=== PATIENT | male | born 1970 | race Caucasian/White ===

== ENCOUNTER 2019-08-08 04:21 | Inpatient (IN) | payer BC ==
[~2019-08-08] VITALS: Ht 172.7 cm; Wt 66.0 kg
[2019-08-08] MEDS ORDERED: ONDANSETRON HCL INJ 2MG/ML 2ML 2 MG/ML VIAL IV STA (04:38)
[2019-08-08] MEDS ORDERED: MORPHINE SULFATE 2 MG/ML SYR 1ML IV STA ×3 (04:38→06:31)
[2019-08-08] MEDS ORDERED: KETOROLAC TROMETHAMINE 30 MG/ML VIAL IV STA (04:41)
[2019-08-08] MEDS ORDERED: ONDANSETRON HCL INJ 2MG/ML 2ML 2 MG/ML VIAL ONE (04:42)
[2019-08-08] MEDS ORDERED: KETOROLAC TROMETHAMINE 30 MG/ML VIAL ONE (04:42)
[2019-08-08] MEDS ORDERED: SODIUM CHLORIDE 0.9% 1000ML 1,000 ML ONE ×2 (04:42→06:26)
[2019-08-08] MEDS ORDERED: MORPHINE SULFATE INJ 4 MG/ML INJ 1ML ONE ×2 (04:45→05:18)
[2019-08-08] MEDS ORDERED: SODIUM CHLORIDE 0.9% 1000ML 1,000 ML IV ONE (05:00)
[2019-08-08] MEDS ORDERED: SODIUM CHLORIDE FLUSH 10 ML SYR IV ONE (05:00)
[2019-08-08] MEDS ORDERED: FAMOTIDINE 20 MG/2 ML VIAL IV STA (06:19)
--- NOTE | 2019-08-08 06:31 | NUR ---
PER MD GIVE 2ND 2MG OF MORPHINE SIVP PT STILL PAIN 08/24.
--- NOTE | 2019-08-08 06:35 | Diagnostic Imaging Report ---
EXAM: CT Abdomen and Pelvis WITHOUT contrast INDICATION: Mid abdominal pain, nausea, vomiting COMPARISON: None. TECHNIQUE: Abdomen and pelvis were scanned utilizing a multidetector helical scanner from the lung base to the pubic symphysis without administration of IV contrast. Absence of intravenous contrast decreases sensitivity for detection of focal lesions and vascular pathology. Coronal and sagittal reformations were obtained. Routine protocol was performed. IV CONTRAST: None ORAL CONTRAST: None COMPLICATIONS: None RADIATION DOSE: Total DLP: 653 mGy*cm Estimated effective dose: (DLP x 0.015 x size factor) mSv CTDIvol has been reviewed. It is below the limits set by the Radiation Protocol Committee (RPC). Dose modulation, iterative reconstruction, and/or weight based adjustment of the mA/kV was utilized to reduce the radiation dose to as low as reasonably achievable. FINDINGS: LINES and TUBES: None. LOWER THORAX: Tree-in-bud opacities in the bilateral mid to lower lungs. HEPATOBILIARY: No focal hepatic lesions. No intrahepatic biliary ductal dilation. Mild common bile duct dilation likely due to risk for effect is seen status post cholecystectomy. GALLBLADDER: There are cholecystectomy clips. SPLEEN: No splenomegaly. PANCREAS: Peripancreatic fat stranding. No focal masses or ductal dilatation. ADRENALS: No adrenal nodules KIDNEYS/URETERS: No hydronephrosis. No cystic or solid mass lesions. No stones. GI TRACT: No abnormal distention, wall thickening, or evidence of bowel obstruction. Appendix is normal. PELVIC ORGANS/BLADDER: Moderate prostatomegaly. Surgical changes of vasectomy. LYMPH NODES: No lymphadenopathy. VESSELS: Unremarkable. PERITONEUM / RETROPERITONEUM: No free air or fluid. BONES: Unremarkable. SOFT TISSUES: Unremarkable. IMPRESSION: 1. Findings likely represent acute interstitial edematous pancreatitis, correlate with lipase. 2. Tree-in-bud opacities in the bilateral mid to lower lungs concerning for airway spread of infection/multifocal pneumonia. Signed by: Christiano Prather DO on 08/08/2019 6:32 AM
--- NOTE | 2019-08-08 06:37 | NUR ---
CALLED AND SPOKE WITH CALISTA SANCHEZ. WILL REC. ADMIT BED AFTER CHANGE OF SHIFT. BEDS ARE AVAILABLE.
[2019-08-08] MEDS ORDERED: SODIUM CHLORIDE 0.9% 1000ML 1,000 ML IV STA (06:40)
[2019-08-08] MEDS ORDERED: MORPHINE SULFATE 2 MG/ML SYR 1ML IV PRN (06:45)
--- OUTSIDE RECORDS SUMMARY | 2019-08-08 07:05 | XMS REPORT ---
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 Allergies, Adverse Reactions, Alerts This patient has no known allergies or adverse reactions. Medications This patient has no known medications. Results Test Description Test Time Test Comments Text Results Atomic Results Result Comments CT ABD/PEL WO CONTRAST-HOPD 2019-08-08 06:24:00 [place] [address] Patient Name: MILAGROS AMBROSIO MR #: [id number] : 1970 Age/Sex: 48/M Req #: [id number] Adm Physician: Ordered by: CARLI ALEX MD Report #: [id number] Location: [facility] Room/Bed: Procedure: [id number] HOPD/CT ABD/PEL WO CONTRAST-HOPD Exam Date: 08/08/19 Exam Time: 524 REPORT STATUS: Signed EXAM: CT Abdomen and Pelvis WITHOUT contrast INDICATION: Mid abdominal pain, nausea, vomiting COMPARISON: None. TECHNIQUE: Abdomen and pelvis were scanned utilizing a multidetector helical scanner from the lung base to the pubic symphysis without administration of IV contrast. Absence of intravenous contrast decreases sensitivity for detection of focal lesions and vascular pathology. Coronal and sagittal reformations were obtained. Routine protocol was performed. IV CONTRAST: None ORAL CONTRAST: None COMPLICATIONS: None RADIATION DOSE: Total DLP: 653 mGy*cm Estimated effective dose: (DLP x 0.015 x size factor) mSv CTDIvol has been reviewed. It is below the limits set by the Radiation Protocol Committee (RPC). Dose modulation, iterative reconstruction, and/or weight based adjustment of the mA/kV was utilized to reduce the radiation dose to as low as reasonably achievable. FINDINGS: LINES and TUBES: None. LOWER THORAX: Tree-in-bud opacities in the bilateral mid to lower lungs. HEPATOBILIARY: No focal hepatic lesions. No intrahepatic biliary ductal dilation. Mild common bile duct dilation likely due to risk for effect is seen status post cholecystectomy. GALLBLADDER: There are cholecystectomy clips. SPLEEN: No splenomegaly. PANCREAS: Peripancreatic fat stranding. No focal masses or ductal dilatation. ADRENALS: No adrenal nodules KIDNEYS/URETERS: No hydronephrosis. No cystic or solid mass lesions. No stones. GI TRACT: No abnormal distention, wall thickening, or evidence of bowel obstruction. Appendix is normal. PELVIC ORGANS/BLADDER: Moderate prostatomegaly. Surgical changes of vasectomy. LYMPH NODES: No lymphadenopathy. VESSELS: Unremarkable. PERITONEUM / RETROPERITONEUM: No free air or fluid. BONES: Unremarkable. SOFT TISSUES: Unremarkable. IMPRESSION: 1. Findings likely represent acute interstitial edematous pancreatitis, correlate with lipase. 2. Tree-in-bud opacities in the bilateral mid to lower lungs concerning for airway spread of infection/multifocal pneumonia. Signed by: Christiano Prather DO on 08/08/2019 6:32 AM Dictated By: CHRISTIANO PRATHER DO 1 Transcribed By: NISHI on 08/08/19631 COPY TO: CARLI ALEX MD
--- NOTE | 2019-08-08 07:10 | NUR ---
PT TO BE TRANSFERRED TO [facility] MAIN, PT AND FAMILY AWARE OF POC, VITAL SIGNS STABLE, PT VOICES NO COMPLAINTS AT THIS TIME
--- NOTE | 2019-08-08 07:14 | NUR ---
[facility] CALLED FOR TRANSFER 45MIN ETA
--- NOTE | 2019-08-08 08:25 | NUR ---
RECEIVED TO RM AAOX3 NO DISTRESS NOTED, UPDATED ON POC VOICED UNDERSTANDING, PT CO PAIN 11/23 PT WAS MEDICATED PRIOR IN [facility] ER, WILL NOTIFY DR BEE FOR FURTHER ORDERS, IVF INFUSING TO R FA 20G NO SS OF INFILTRATION NOTED, ORIENTED TO RM, NO OTHER CO VOICED CALL LIGHT IN REACH WILL CONTINUE TO MONITOR
--- NOTE | 2019-08-08 08:40 | NUR ---
LAB IN ROOM DRAWING BLOOD CULTURES
[2019-08-08] MEDS: LEVOFLOXACIN 750MG/D5W 150ML 150 ML IV SCH (08:50)
[2019-08-08] MEDS: FAMOTIDINE 20 MG/2 ML VIAL IV SCH ×2 (09:00→17:16)
[2019-08-08] MEDS: HYDROMORPHONE 1MG/1ML INJ IV PRN ×5 (09:30→23:26)
[2019-08-08] MEDS: ONDANSETRON HCL INJ 2MG/ML 2ML 2 MG/ML VIAL IV PRN ×2 (09:30→19:53)
[2019-08-08 09:48] VITALS: BP 114/77
[2019-08-08] MEDS ORDERED: DICYCLOMINE HCL10 MG PO (10:06)
[2019-08-08] MEDS ORDERED: ZEBETA10 MG PO (10:06)
[2019-08-08 10:09] VITALS: BP 114/77
[2019-08-08] MEDS ORDERED: PROMETHAZINE 12.5MG/ NACL 0.9% 12.5 MG/50 ML BAG IV PRN (13:15)
[2019-08-08] MEDS: SODIUM CHLORIDE 0.9% 1000ML 1,000 ML IV SCH ×3 (14:05→20:45)
[2019-08-08 14:21] VITALS: BP 142/75
[2019-08-08 17:21] VITALS: BP 125/74
--- NOTE | 2019-08-08 18:54 | NUR ---
WALKING ROUNDS PERFORMED, RECEIVED PT LAYING SEMI FOWLERS IN BED, AAOX3, RR EVEN AND NON-LABORED, ON ROOM AIR. PT REPORTS ANTERIOR ABD PAIN. LEFT PT LAYING SEMI FOWLERS IN BED, BED IN LOW LOCKED POSITION, SIDE RAILS UPX2, CALL LIGHT AND PHONE WITHIN REACH.
[2019-08-08] MEDS ORDERED: LORAZEPAM INJ 2 MG/ML VIAL IV PRN (19:30)
[2019-08-08 20:00] VITALS: BP 118/72
[2019-08-08] MEDS ORDERED: MULTIVITAMINS- 12 INJECTION 10 ML, FOLIC ACID MDV 5 MG, THIAMINE HCL INJ 100 MG in SODI... IV ONE (20:00)
--- NOTE | 2019-08-08 21:01 | Consultation ---
DATE OF CONSULTATION: 08/08/2019 CONSULTING PHYSICIAN: Dominic Stewart MD. REASON FOR CONSULT: Acute alcoholic pancreatitis. 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 He consumed lots of alcohol yesterday's night. He stated that he had tattoos placed in the right forearm, because of the pain he was experiencing secondary to tattoo placement, he decided to drink more alcohol. When he arrived to the local [facility]-standing emergency room, his amylase level was elevated to 220. Noncontrast CT scan showed radiographic evidence of pancreatitis. The patient was subsequently transferred to Inpatient Service here. Currently, his pain is being controlled with intravenous Dilaudid. He is also getting intravenous normal saline. The patient has never had any attack of pancreatitis in his life in the past. He is status post cholecystectomy. Liver enzymes drawn suggestive of alcoholic liver disease. REVIEW OF SYSTEMS: Twelve-point system reviewed, pertinent positives as per HPI. PAST MEDICAL HISTORY: Hypertension. PAST SURGICAL HISTORY: Cholecystectomy. FAMILY HISTORY: Noncontributory. SOCIAL HISTORY: , lives with his . Regular use of alcohol. No smoking or any illicit drug use. ALLERGIES: NO KNOWN DRUG ALLERGIES. MEDICATION: Home medication, bisoprolol. Inpatient medication, reviewed as per MAR, he is gettin. Levofloxacin 750 mg IV daily. 2. Normal saline at 150 mL an hour. 3. Famotidine 20 mg IV twice daily. 4. Hydromorphone 1 mg IV every 3 hours as needed. PHYSICAL EXAMINATION: VITAL SIGNS: Temperature 96.6, pulse 77, respirations 20, blood pressure 125/74, oxygen saturation 95% on room air. GENERAL: Not in any apparent distress. HEENT: Oral mucosa is moist. Anicteric sclerae. CVS: S1, S2 regular. LUNGS: Bilaterally grossly clear without any rales or rhonchi. ABDOMEN: Soft. Palpable epigastric tenderness on mild palpation without rebound, rigidity, or guarding. Positive bowel sounds. EXTREMITIES: Warm. Trace leg edema. LABORATORY DATA: Sodium 140, potassium 4.5, chloride 102, bicarb 26, BUN 8, creatinine 0.7. Liver enzymes showed alkaline phosphatase 98, ALT 94, AST 128, total bilirubin 0.8, albumin 4.0, total protein 7.0. Urine drug screen is negative. WBC 10.7, hemoglobin 16.4, hematocrit 47.6, MCV 92, and platelet count 203. CT of the abdomen and pelvis without contrast showed: 1. Findings likely representing acute interstitial edematous pancreatitis, correlate with lipase. 2. Tree-in-bud opacities in bilateral [id number]-[id number] lungs concerning for airway spread of infection/multifocal pneumonia. IMPRESSION: 1. Acute alcoholic pancreatitis without any local or distant complication. 2. Tree-in-bud opacities seen in both the lungs concerning for resolving pneumonia. The patient's stated that he has had flu-like symptoms couple of weeks ago. 3. Alcohol dependence. PLAN: N.p.o., aggressive isotonic IV fluid resuscitation, agree with normal saline at least 150-200 mL an hour, supportive care, hydromorphone as needed. Since the patient has significant alcohol dependence, therefore recommend to be vigilant about alcohol withdrawal signs. Supplement thiamine and folate. We will consider banana bag. I recommend a admin asst consult for CT lung findings. I thank Dr. Stewart for allowing me to participate in the care of this patient. Fazal Pierce MD SA/KHLOE /[id number]
[2019-08-08 21:18] VITALS: BP 118/72
[2019-08-09] VITALS (9 sets, daily range): BP systolic 122–143; BP diastolic 66–84
[2019-08-09] MEDS: HYDROMORPHONE 1MG/1ML INJ IV PRN ×5 (03:04→21:41)
[2019-08-09] MEDS ORDERED: FOLIC ACID 5 MG/ML VIAL IV ONE (04:43)
[2019-08-09] MEDS ORDERED: THIAMINE HCL INJ 100 MG/ML 2ML VIAL IV ONE (04:43)
[2019-08-09] MEDS ORDERED: MULTIVITAMINS- 12 INJECTION 10 ML in SODIUM CHLORIDE 0.9% 1000ML 1,000 ML IV ONE (04:44)
[2019-08-09 05:29] LABS: BASOPHILS % 0.5 % (0.0-1.0); EOSINOPHILS # (AUTO) 0.1 (0.0-0.4); EOSINOPHILS % 1.2 % (0.0-6.0); HEMATOCRIT 42.8 % (38.2-49.6); HEMOGLOBIN 14.4 g/dL (14.0-18.0); LYMPHOCYTES # (AUTO) 0.9 (1.0-3.2); LYMPHOCYTES % 10.2 % (18.0-39.1); MEAN CORPUSCULAR HEMOGLOBIN 30.3 pg (28-32); MEAN CORPUSCULAR HGB CONC 33.6 g/dL (31-35); MEAN CORPUSCULAR VOLUME 89.9 fL (81-99); MONOCYTES # (AUTO) 0.5 (0.2-0.8); MONOCYTES % 6.4 % (4.4-11.3); NEUTROPHILS # (AUTO) 6.9 (2.1-6.9); NEUTROPHILS % 81.3 % (38.7-80.0); PLATELET COUNT 126 x10e3/uL (140-360); RED BLOOD COUNT 4.76 x10e6/uL (4.3-5.7)
[2019-08-09] MEDS: LEVOFLOXACIN 750MG/D5W 150ML 150 ML IV SCH (05:33)
[2019-08-09 06:07] LABS: ALANINE AMINOTRANSFERASE 67 IU/L (0-55); ALBUMIN 3.6 g/dL (3.5-5.0); ALBUMIN/GLOBULIN RATIO 1.5 (0.8-2.0); ALKALINE PHOSPHATASE 88 IU/L (40-150); ANION GAP 8.7 mmol/L (8-16); BILIRUBIN,DIRECT 1.2 mg/dL (0.0-0.5); BLOOD UREA NITROGEN 10 mg/dL (7-26); BUN/CREATININE RATIO 14 (6-25); CALCIUM 8.3 mg/dL (8.4-10.2); CARBON DIOXIDE 32 mmol/L (22-29); CHLORIDE 99 mmol/L (98-107); CREATININE, SERUM 0.72 mg/dL (0.72-1.25); EST GLOMERULAR FILTRATION RATE > 60 ML/MIN (60-); GLUCOSE 96 mg/dL (74-118); POTASSIUM 3.7 mmol/L (3.5-5.1); SODIUM 136 mmol/L (136-145)
[2019-08-09 06:31] LABS: AMYLASE 244 U/L (25-125); LIPASE 379 U/L (8-78)
--- NOTE | 2019-08-09 06:32 | NUR ---
PAGE PLACED FOR ODALIS FOR CONSULTATION. WAITING FOR CALLBACK.
[2019-08-09] MEDS: MULTIVITAMINS- 12 INJECTION 10 ML, FOLIC ACID MDV 5 MG, THIAMINE HCL INJ 100 MG in SODI... IV SCH ×3 (07:09→23:12)
[2019-08-09] MEDS: FAMOTIDINE 20 MG/2 ML VIAL IV SCH ×2 (09:38→17:33)
--- NOTE | 2019-08-09 09:54 | Consultation ---
DATE OF CONSULTATION: Pulmonary Consultation Patient of Dr. Dominic Stewart and Dr. Pierce. 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 He was admitted with abdominal pain and vomiting, which awakened him from sleep. He does not recall aspirating. He has no known allergies. He has a history of renal stones in the past and history of hypertension, on bisoprolol. He is exposed to cedar pollen recently. He has had gallbladder surgery as well as laser surgery to remove renal stone complicated by bleeding. FAMILY HISTORY: Positive for diabetes. PHYSICAL EXAMINATION: GENERAL: He is a well-developed white male, multiple tattoos. VITAL SIGNS: Temperature 99.7, pulse 80, respirations 22, and blood pressure 122/60. HEAD: Normocephalic and atraumatic. EYES: Extraocular movements intact. LUNGS: Clear. HEART: Regular rhythm. ABDOMEN: Tender. EXTREMITIES: Nonedematous. DIAGNOSTIC DATA: CT scan reveals evidence of bilateral infiltrates consistent with pneumonia. No pleural effusions noted. He has an edematous pancreas. PLAN: Continue supportive care. Anaerobic coverage if the patient becomes febrile. He is currently on Levaquin. Amylase is 244, lipase 379, proteins are low. Liver functions are moderately elevated. Platelets are somewhat low at 126 and we will defer subcutaneous heparin. Thank you for this kind referral. David Ingram MD DS/MODL /[id number]
--- NOTE | 2019-08-09 10:15 | NUR ---
PROVIDED RESOURCES FOR LOCAL AA MEETING AND TREATMENT PROGRAMS TO FOLLOW UP UPON DISCHARGE.
--- NOTE | 2019-08-09 10:33 | Diagnostic Imaging Report ---
Chest, 2 views, 08/09/2019. History: Epigastric pain. Comparison: CT abdomen 08/08/2019. Findings: The cardiomediastinal silhouette and pulmonary vasculature are within normal limits. Diffuse bilateral reticulonodular opacities are present with minimal blunting of the right costophrenic sulcus. Patchy consolidation is present in the lateral segment of the right middle lobe and lingula. There are no acute osseous or soft tissue abnormalities. Impression: Findings consistent with multifocal pneumonia as noted on prior CT, atypical/viral infection cannot be excluded. Signed by: Denys Jorge on 08/09/2019 10:29 AM
--- NOTE | 2019-08-09 12:10 | NUR ---
Pt unavailable at this time. I will follow up as able. DEWEY Arguetal[facility] Spiritual Care Department O: [phone]
[2019-08-09] MEDS ORDERED: BISACODYL 10 MG SUPP PR NR (17:00)
--- NOTE | 2019-08-09 19:27 | NUR ---
SBAR REPORT RECEIVED FROM OPHELIA CHIANG, PATIENT AWAKE ALERT, NO DISTRESS NOTED SKIN WARM DRY, NO C/O PAIN, NO C/O ETOH WITHDRAWAL NOTED, LYING COMFORTABLY IN BED, CALL LIGHT WITHIN REACH WILL CONTINUE TO MONITOR
[2019-08-09] MEDS: ONDANSETRON HCL INJ 2MG/ML 2ML 2 MG/ML VIAL IV PRN (21:41)
[2019-08-10] VITALS (11 sets, daily range): BP systolic 112–163; BP diastolic 64–86
[2019-08-10] MEDS ORDERED: ACETAMINOPHEN 1000 MG/100 ML IV STA (00:23)
[2019-08-10] MEDS: HYDROMORPHONE 1MG/1ML INJ IV PRN ×5 (00:49→20:03)
--- NOTE | 2019-08-10 00:50 | NUR ---
ROUTINE VITAL CHECK PATIENT HAS TEMP 100.3, MD BEE NOTIFIED, PRN ACETAMINOPEN IV q6h PRN ORDERED FOR TEMP<100.9, PRN IV MEDICATION GIVEN, TOLERATED WELL, VITAL RECHECK IN 30 MINUTES
--- NOTE | 2019-08-10 04:19 | NUR ---
PT C/O "FEELING BLOATED" "i DONT THINK I GOT ALL THE POOP OUT, BUT I DID HAVE ONE LARGE BM", PT ABDOMEN PALPATED, ALL QUADRANTS SOFT AND NONDISTENDED, DURING PALPATION PT DOESNT C/O PAIN OR DISCOMFORT, JUST STATES " I FEEL BLOATED", NO S/SX OF ETOH WITHDRAWAL AT THIS TIME, RESTING IN BED CALL LIGHT WTIHIN REACH
[2019-08-10] MEDS ORDERED: PRILOSEC OTC20 MG PO (05:18)
[2019-08-10] MEDS: LEVOFLOXACIN 750MG/D5W 150ML 150 ML IV SCH (05:18)
[2019-08-10 05:30] LABS: BASOPHILS % 0.6 % (0.0-1.0); EOSINOPHILS # (AUTO) 0.1 (0.0-0.4); EOSINOPHILS % 1.9 % (0.0-6.0); HEMATOCRIT 37.8 % (38.2-49.6); HEMOGLOBIN 13.1 g/dL (14.0-18.0); LYMPHOCYTES # (AUTO) 0.6 (1.0-3.2); LYMPHOCYTES % 9.5 % (18.0-39.1); MEAN CORPUSCULAR HEMOGLOBIN 30.5 pg (28-32); MEAN CORPUSCULAR HGB CONC 34.7 g/dL (31-35); MEAN CORPUSCULAR VOLUME 88.1 fL (81-99); MONOCYTES # (AUTO) 0.5 (0.2-0.8); MONOCYTES % 8.5 % (4.4-11.3); PLATELET COUNT 100 x10e3/uL (140-360); RED BLOOD COUNT 4.29 x10e6/uL (4.3-5.7); RED CELL DISTRIBUTION WIDTH 11.8 % (11.7-14.4)
[2019-08-10] MEDS: MULTIVITAMINS- 12 INJECTION 10 ML, FOLIC ACID MDV 5 MG, THIAMINE HCL INJ 100 MG in SODI... IV SCH ×2 (05:37→14:30)
[2019-08-10 05:43] LABS: ALANINE AMINOTRANSFERASE 49 IU/L (0-55); ALBUMIN 3.2 g/dL (3.5-5.0); ALBUMIN/GLOBULIN RATIO 1.4 (0.8-2.0); ALKALINE PHOSPHATASE 92 IU/L (40-150); AMYLASE 82 U/L (25-125); ANION GAP 9.7 mmol/L (8-16); BLOOD UREA NITROGEN 6 mg/dL (7-26); BUN/CREATININE RATIO 10 (6-25); CALCIUM 8.1 mg/dL (8.4-10.2); CARBON DIOXIDE 29 mmol/L (22-29); CHLORIDE 98 mmol/L (98-107); CREATININE, SERUM 0.63 mg/dL (0.72-1.25); EST GLOMERULAR FILTRATION RATE > 60 ML/MIN (60-); GLUCOSE 83 mg/dL (74-118); LIPASE 40 U/L (8-78); POTASSIUM 3.7 mmol/L (3.5-5.1); SODIUM 133 mmol/L (136-145)
[2019-08-10] MEDS ORDERED: HYDRALAZINE HCL 20 MG/ML VIAL IV PRN (05:45)
[2019-08-10 05:46] LABS: MAGNESIUM 1.1 MG/DL (1.3-2.1)
--- NOTE | 2019-08-10 05:54 | NUR ---
Lb reported Mg level 1.1, MD madeline hutchison to get orders, awaiting call back Addendum: 08/10/19 at 0555 by JOURDAN LUU RN Lab reported Mg level 1.1, MD madeline hutchison to get orders, awaiting call back
[2019-08-10] MEDS ORDERED: ACETAMINOPHEN 1000 MG/100 ML IV SCH (06:00)
[2019-08-10] MEDS ORDERED: ACETAMINOPHEN 1000 MG/100 ML IV PRN (06:00)
[2019-08-10] MEDS ORDERED: MAGNESIUM SULFATE 2GM/50ML 50 ML IV ONE ×3 (07:00→12:00)
[2019-08-10] MEDS: FAMOTIDINE 20 MG/2 ML VIAL IV SCH ×2 (08:36→16:10)
[2019-08-10] MEDS: THIAMINE HCL 100 MG TAB PO SCH (09:49)
[2019-08-10] MEDS: BISOPROLOL FUMARATE 10 MG TAB PO SCH (09:50)
[2019-08-10] MEDS: POLYETHYLENE GLYCOL 3350 17 GM PACK PO SCH (19:02)
--- NOTE | 2019-08-10 19:17 | NUR ---
Report given to oncoming nurse of patient's status. Walking in room. AAOX4 to time, person, place, situation. Respirations even and unlabored. Call light within reach.
--- NOTE | 2019-08-10 19:40 | NUR ---
BSSR RECEIVED PATIENT SEEN WALKING AROUND ROOM, AOX4, PATIENT DIET ADVANCED TO CLEAR LIQUIDS, PT STATES " I WAS ABLE TO EAT SOME SOUP AND JUICE BEFORE FEELING FULL" REPORTED PAIN LEVEL TOLERABLE AT 0710, PT NOW REQUESTING PRN PAIN MEDICATION FOR PAIN LEVEL 12/24
[2019-08-10] MEDS ORDERED: SENNA-S TABLET PO SCH (21:00)
--- NOTE | 2019-08-10 21:42 | Progress Note ---
DATE: 08/10/2019 GI Consult and Progress Report SUBJECTIVE: The patient reports improvement in abdominal pain. Feeling hungry. Therefore, he would like to eat. He is also complaining of constipation. REVIEW OF SYSTEMS: GENERAL: No fever or chills. CVS: No chest pain or palpitations. RESPIRATORY: No cough or expectoration. MEDICATIONS: Reviewed the MAR. PHYSICAL EXAMINATION: VITAL SIGNS: Temperature 98, pulse 68, respirations 18, blood pressure 121/64, oxygen saturation 98% on room air. GENERAL: Not in any acute distress. HEENT: Oral mucosa is moist. Anicteric sclerae. ABDOMEN: Soft and nondistended. Epigastric tenderness resolved. No rebound, rigidity, or guarding. Positive bowel sounds. LABORATORY DATA: Sodium 133, potassium 3.7, chloride 98, bicarb 29, BUN 6, creatinine 0.63, glucose 83. Liver enzymes; total bilirubin 3.1, AST 62, ALT 49, alkaline phosphatase 92. WBC 6.33, hemoglobin 13.1, hematocrit 37.8, and platelet count 100. IMPRESSION: 1. Alcoholic pancreatitis, resolving. 2. Given low platelet count and hyperbilirubinemia, I strongly suggest that the patient has underlying alcoholic liver cirrhosis. PLAN: Advance diet as tolerated, continue supportive care. Check viral hepatitis serology. Minimize the use of narcotic analgesia. Standing bowel regimen for constipation. The patient is also getting antibiotic recommended by Pulmonary Service as the initial CT scan performed in the free-standing ER had shown some tree-in-bud opacities in the lungs. Fazal Pierce MD SA/BERTRAML /[id number]
[2019-08-11] VITALS (11 sets, daily range): BP systolic 120–139; BP diastolic 64–78
[2019-08-11] MEDS: LEVOFLOXACIN 750MG/D5W 150ML 150 ML IV SCH (05:21)
[2019-08-11 06:38] LABS: BASOPHILS % 0.5 % (0.0-1.0); EOSINOPHILS # (AUTO) 0.1 (0.0-0.4); EOSINOPHILS % 1.8 % (0.0-6.0); HEMOGLOBIN 12.6 g/dL (14.0-18.0); LYMPHOCYTES # (AUTO) 0.5 (1.0-3.2); LYMPHOCYTES % 9.1 % (18.0-39.1); MEAN CORPUSCULAR HEMOGLOBIN 30.9 pg (28-32); MEAN CORPUSCULAR VOLUME 88.2 fL (81-99); MONOCYTES # (AUTO) 0.5 (0.2-0.8); MONOCYTES % 9.3 % (4.4-11.3); NEUTROPHILS # (AUTO) 4.3 (2.1-6.9); NEUTROPHILS % 78.8 % (38.7-80.0); PLATELET COUNT 112 x10e3/uL (140-360); RED BLOOD COUNT 4.08 x10e6/uL (4.3-5.7); RED CELL DISTRIBUTION WIDTH 11.9 % (11.7-14.4)
[2019-08-11 07:06] LABS: ALANINE AMINOTRANSFERASE 49 IU/L (0-55); ALBUMIN/GLOBULIN RATIO 1.3 (0.8-2.0); ALKALINE PHOSPHATASE 114 IU/L (40-150); AMYLASE 61 U/L (25-125); ANION GAP 8.1 mmol/L (8-16); BLOOD UREA NITROGEN < 5 mg/dL (7-26); CALCIUM 7.9 mg/dL (8.4-10.2); CARBON DIOXIDE 28 mmol/L (22-29); CHLORIDE 100 mmol/L (98-107); CREATININE, SERUM 0.58 mg/dL (0.72-1.25); EST GLOMERULAR FILTRATION RATE > 60 ML/MIN (60-); GLUCOSE 112 mg/dL (74-118); LIPASE 52 U/L (8-78); MAGNESIUM 1.7 MG/DL (1.3-2.1); POTASSIUM 3.1 mmol/L (3.5-5.1); SODIUM 133 mmol/L (136-145)
[2019-08-11 07:09] LABS: BUN/CREATININE RATIO 9 (6-25)
[2019-08-11] MEDS: MULTIVITAMINS- 12 INJECTION 10 ML, FOLIC ACID MDV 5 MG, THIAMINE HCL INJ 100 MG in SODI... IV SCH ×3 (07:10→19:53)
[2019-08-11] MEDS: POLYETHYLENE GLYCOL 3350 17 GM PACK PO SCH ×2 (08:27→18:00)
[2019-08-11] MEDS: THIAMINE HCL 100 MG TAB PO SCH (08:27)
[2019-08-11] MEDS: FAMOTIDINE 20 MG/2 ML VIAL IV SCH ×2 (08:27→18:00)
[2019-08-11] MEDS: BISOPROLOL FUMARATE 10 MG TAB PO SCH (08:28)
[2019-08-11] MEDS ORDERED: MAGNESIUM/ALUMINUM/SIMETHICONE 30 ML UDC PO ONE (08:40)
[2019-08-11] MEDS ORDERED: POTASSIUM CHLORIDE 20 MEQ TAB CR PO ONE (08:45)
[2019-08-11] MEDS ORDERED: PANTOPRAZOLE SOD 40 MG TABEC PO SCH (09:00)
[2019-08-11] MEDS ORDERED: ACETAMINOPHEN 325 MG TAB PO PRN (14:45)
--- NOTE | 2019-08-11 19:08 | NUR ---
Report given to oncoming nurse of patient's status. No s/s of acute distress noted.
--- NOTE | 2019-08-11 20:29 | NUR ---
NOTIFIED FROM RN REHAN THAT MD ROSA CRAIG VERBALIZED PATIENT CLEAR FROM HIS STAND POINT, MD BEE NOTIFIED
--- NOTE | 2019-08-11 21:00 | Progress Note ---
DATE: 08/11/2019 GI Progress Report SUBJECTIVE: The patient reports no abdominal pain. Tolerating solid food. Has had a bowel movement. REVIEW OF SYSTEMS: GENERAL: No fever or chills. CVS: No chest pain or palpitation. RESPIRATORY: No cough or expectoration. MEDICATIONS: Reviewed as per MAR. PHYSICAL EXAMINATION: VITAL SIGNS: Temperature 97.5, pulse 57, respirations 16, blood pressure 130/75, and oxygen saturation 97% on room air. GENERAL: Not in any acute distress. Oral mucosa is moist. ABDOMEN: Soft. Epigastric and right upper quadrant tenderness has resolved. No mass or hernia. No rebound, rigidity, or guarding. Positive bowel sounds. LABORATORY DATA: WBC 5.51, hemoglobin 12.6, hematocrit 36, MCV 88.2, and platelet count 112. Sodium 133, potassium 3.1, chloride 100, bicarb 28, BUN 5, creatinine 0.58, and glucose 112. Liver enzymes showed a total bilirubin 2.0 down from 3.1, AST 64 from 62, ALT 49, alkaline phosphatase 112, albumin 3.0, and lipase down to 52. Viral hepatitis serology is pending. IMPRESSION: 1. Alcoholic pancreatitis, resolved. 2. High suspicion for alcoholic liver cirrhosis without ascites. 3. Some pulmonary opacities, on antibiotic, Pulmonary service following. PLAN: From GI standpoint, the patient can be discharged home. We will follow hepatitis serology as an outpatient. Complete cessation from alcohol again reinforced. I have given him my business card. The patient 's also has my business card. I will follow him in my office within 1-2 weeks post discharge. Given the García situation, I might not be able to see him physically in my office, but I can have a video conferencing with the patient. Fazal Pierce MD SA/KHLOE /[id number]
--- NOTE | 2019-08-11 21:21 | NUR ---
MD BEE RETURN PAGE, ORDER PT TO BE DISCHARGE HOME, WILL SEND SCRIPT FOR ANTIBIOTICS TO HOME PHARMACY, PER MD INSTRUCTIONS SENT PT NAME, , HOME PHARMACY CONTACT INFORMATION AND LOCATION, PATIENT TELEMETRY AND IV ACCESS DISCONTINUED, IV SITE INTACT, CATHETER INTACT, NO BLEEDING, DRY DRESSING AND WRAP APPLIED TO AREA, DISCHARGE INSTRUCTIONS FOR FU APPT WITH PRIMARY DOCTOR, ETOH ABUSE, AND ADULT ABDOMEN PAIN GIVEN TO PATIENT VERBALLY AND WRITTEN INSTRUCTIONS, PT REQUESTED BEFORE DISCHARGE TO NOTIFY MED FOR SCRIPT FOR MEDICATION TO HELP WITH STOP ALCOHOL CONSUMPTION, MSG SENT, PATIENT AWAITING TO PU IN PRIVATE VEHICLE
[2019-08-12] MEDS ORDERED: THIAMINE HCL 100 MG TAB PO SCH (09:00)
[2019-08-12] MEDS ORDERED: FOLIC ACID 1 MG TAB PO SCH (09:00)
--- NOTE | 2019-09-02 08:55 | Discharge Summary ---
DISCHARGE DIAGNOSES: 1. Pancreatitis. 2. Pneumonia. 3. Alcohol abuse. HISTORY OF PRESENT ILLNESS AND HOSPITAL COURSE: The patient is a gentleman with a history of alcohol abuse, who presented with abdominal pain, was found to have pancreatitis as well as an atypical pneumonia. He was brought in, placed on IV fluids, IV pain medication, IV antibiotics and seen by Pulmonary. His pancreatitis improved significantly. The patient states he will never drink again per his words and he never had any issues with shortness of breath, or cough, so he was discharged home with p.o. antibiotics and told to discontinue the alcohol abuse and follow up with his PCP in 1 to 2 weeks. Please see hospital chart for full details. MD JERICA Baer/KHLOE /[id number]
== END 2019-08-11 21:36 | disposition home or self-care (01) | DRG 438 ==
LOC: FSED 04:21 → ERHOLD 06:32 → MED/SURG 08:16
PROVIDERS: ADMIT Internal Medicine; ATTEND Internal Medicine
DX: K85.20 Alcohol induced acute pancreatitis without necrosis or infection (principal); J18.9 Pneumonia, unspecified organism; I10 Essential (primary) hypertension; F10.20 Alcohol dependence, uncomplicated; K70.30 Alcoholic cirrhosis of liver without ascites
CPT/HCPCS: 36415; 71046; 74176; 80053; 80076; 81003; 82150; 83690; 83735; 85025; 87040; 96374; 96375; 96376; 99284; J1170; J1885; J2270; J2405; J2550; J3411; J3475; J7030